=== PATIENT | male | born 1975 | race African-American/Black ===

== ENCOUNTER → 2019-05-21 | Day surgery (SDC) | payer OTHER ==
--- NOTE | 2019-05-21 16:06 | RADIOLOGY REPORT (SQ) ---
EXAM DESCRIPTION: ARTHRO SHOULDER INJECTION; FLUORO/NEEDLE PLACEMENT COMPLETED DATE/TIME: 05/21/2019 3:25 pm REASON FOR STUDY: S43.491S OTHER SPRAIN OF RIGHT SHOULDER JOINT, SEQUELA S43.491S OTHER SPRAIN OF R IGHT SHOULDER JOINT, SEQUELA COMPARISON: None. FLUOROSCOPY TIME: 12 seconds. 1 image saved to PACS. LIMITATIONS: None. PROCEDURE: Procedure, risks, benefits and alternatives explained to patient who then gave written co nsent. The left shoulder was marked and a time out was called for correct procedure verification. Po sterior entry site marked using fluoroscopic guidance. Shoulder prepped and draped using sterile jillian hnique. Local anesthesia achieved using 1% lidocaine injection. Hypodermic needle introduced into t he joint space under direct fluoroscopic visualization. Non-ionic contrast instilled to confirm intra -articular position. Dilute gadolinium solution then injected. Needle removed and entry site covered with sterile bandage. No immediate complications noted. TECHNIQUE: Digital images acquired during fluoroscopy and stored on PACS. Patient immediately take n to the MR suite for additional imaging. INJECTION LOCATION: Posterior left shoulder. CONTRAST TYPE AND AMOUNT: 10 mL Dotarem/Saline mixture. IMPRESSION: SUCCESSFUL NEEDLE PLACEMENT AND INJECTION FOR LEFT SHOULDER MR ARTHROGRAM USING POSTERIO R APPROACH. COMMENT: Quality ID [id number]: Final reports for procedures using fluoroscopy that document radiation exp osure indices, or exposure time and number of fluorographic images (if radiation exposure indices are not available) TECHNICAL DOCUMENTATION: JOB ID: [id number] [employer]- All Rights Reserved Reading location - IP/workstation name: [email or web address]
--- NOTE | 2019-05-22 11:16 | RADIOLOGY REPORT (SQ) ---
EXAM DESCRIPTION: MRI RT UPPER JOINT WITH COMPLETED DATE/TIME: 05/21/2019 3:54 pm REASON FOR STUDY: S43.491S OTHER SPRAIN OF RIGHT SHOULDER JOINT, SEQUELA S43.491S OTHER SPRAIN OF R IGHT SHOULDER JOINT, SEQUELA COMPARISON: None. TECHNIQUE: Right shoulder images acquired and stored on PACS. Oblique coronal, oblique sagittal, and axial imaging to include fat sensitive sequences as T1, water sensitive sequences as FST2/STIR, and contrast sensitive sequences as FST1. LIMITATIONS: None. FINDINGS: JOINT DISTENTION: Adequate. No loose bodies. BONE MARROW AND CORTEX: Normal. AC JOINT: Intact without significant overgrowth. Mild degenerative hypertrophy. Subacromial space p reserved. GLENOHUMERAL JOINT: No subluxation or dislocation. No focal chondral lesions. ROTATOR CUFF: Partial-thickness tear along the distal supraspinatus. This looks high-grade with prob ably 50% or more cuff thickness involvement. Partial tear along the articular surface of the infrasp inatus. No full-thickness gap in the cuff. No cuff muscle atrophy. LABRUM AND BICEPS LABRAL COMPLEX: Superior labral tear looks relatively extensive but without propaga tion into the biceps tendon. No significant paralabral cyst. INFERIOR LABRAL COMPLEX: Generally intact. ADJACENT SOFT TISSUES: No regional mass or axillary adenopathy. OTHER: No other significant finding. IMPRESSION: 1. Cuff tears. Includes relatively high-grade partial thickness articular surface and interstitial s upraspinatus tear. No full-thickness breech identified. 2. Superior labral tear. Biceps tendon looks maintained. TECHNICAL DOCUMENTATION: JOB ID: [id number] [employer]- All Rights Reserved Reading location - IP/workstation name: [email or web address]
== END ==
LOC: RAD 14:38
PROVIDERS: ATTEND Family Medicine
DX: S43.491S Other sprain of right shoulder joint, sequela (principal); X58.XXXS Exposure to other specified factors, sequela
CPT/HCPCS: 73222; 77002; 23350; A9576

== ENCOUNTER 2020-06-23 10:36 | Emergency (ER) | payer OTHER ==
--- NOTE | 2020-06-23 11:43 | ER Document Report ---
ED Medical Screen (RME) - General Chief Complaint: Rectal Pain Stated Complaint: RECTAL PAIN Time Seen by Provider: 06/23/20 11:42 Primary Care Provider: PAULO CARRERA DO [Primary Care Provider] - Follow up as needed Mode of Arrival: Ambulatory Information source: Patient Notes: 44-year-old male presented to ED for complaint of hemorrhoids that are bleeding for the last 4 days. He states he had the pain for about a week. He is alert oriented respirations regular nonlabored speaking in full sentences. He states he has never had hemorrhoids before but these are very painful. He does not smoke does drink 2 times a week and does not use any illicit drugs. He states he does have a history of high blood pressure. I have greeted and performed a rapid initial assessment of this patient. A comprehensive ED assessment and evaluation of the patient, analysis of test results and completion of medical decision making process will be conducted by an additional ED providers. TRAVEL OUTSIDE OF THE [place] IN LAST 30 DAYS: No - Related Data Allergies/Adverse Reactions: No Known Allergies Allergy (Verified 06/23/20 11:42) Physical Exam - Vital signs Vitals: Temp Pulse Resp BP Pulse Ox 98.0 F 54 L 16 149/80 H 100 06/23/20 10:41 06/23/20 10:41 06/23/20 10:41 06/23/20 10:41 06/23/20 10:41 Course - Vital Signs Vital signs: Temp Pulse Resp BP Pulse Ox 98.0 F 54 L 16 149/80 H 100 06/23/20 10:41 06/23/20 10:41 06/23/20 10:41 06/23/20 10:41 06/23/20 10:41 Doctor's Discharge - Discharge Referrals: PAULO CARRERA DO [Primary Care Provider] - Follow up as needed
[2020-06-23 12:11] LABS: ABSOLUTE EOSINOPHILS # (AUTO) 0.1 10^3/uL (0.0-0.6); ABSOLUTE LYMPHOCYTES (AUTO) 1.6 10^3/uL (0.5-4.7); ABSOLUTE MONOCYTES (AUTO) 0.7 10^3/uL (0.1-1.4); ABSOLUTE NEUT (AUTO) 3.5 10^3/uL (1.7-8.2); BASOPHILS % (AUTO) 0.2 % (0-2); HEMATOCRIT 39.1 % (37.9-51.0); LYMPHOCYTES % (AUTO) 26.4 % (13-45); MEAN CORPUSCULAR HEMOGLOBIN 28.3 pg (27.0-33.4); MEAN CORPUSCULAR HGB CONC 33.3 g/dL (32.0-36.0); MEAN CORPUSCULAR VOLUME 85 fl (80-97); MONOCYTES % (AUTO) 11.7 % (3-13); PLATELET COUNT 324 10^3/uL (150-450); RED CELL DISTRIBUTION WIDTH 13.4 % (11.5-14.0); SEGMENTED NEUTROPHILS % (AUTO) 59.7 % (42-78); TOTAL CELLS COUNTED % (AUTO) 100 %; WHITE BLOOD COUNT 5.9 10^3/uL (4.0-10.5)
[2020-06-23 12:18] LABS: INTERNATIONAL RATION (INR) 0.98; PROTHROMBIN TIME 13.2 SEC (11.4-15.4)
[2020-06-23 12:19] LABS: PARTIAL THROMBOPLASTIN TIME 30.2 SEC (23.5-35.8)
[2020-06-23 12:36] LABS: ALBUMIN 4.1 g/dL (3.5-5.0); ALKALINE PHOSPHATASE 94 U/L (38-126); ANION GAP 7 (5-19); ASPARTATE AMINO TRANSFERASE 20 U/L (17-59); BILIRUBIN,TOTAL 0.6 mg/dL (0.2-1.3); BLOOD UREA NITROGEN 16 mg/dL (7-20); CALCIUM 9.3 mg/dL (8.4-10.2); CARBON DIOXIDE 27 mmol/L (22-30); CHLORIDE 106 mmol/L (98-107); GLUCOSE 95 mg/dL (75-110); TOTAL PROTEIN 7.6 g/dL (6.3-8.2)
--- NOTE | 2020-06-23 18:12 | ER Document Report ---
ED General - General Chief Complaint: Hemorrhoids Stated Complaint: RECTAL PAIN Time Seen by Provider: 06/23/20 11:42 Primary Care Provider: PAULO CARRERA DO [Primary Care Provider] - Follow up as needed Mode of Arrival: Ambulatory Notes: Presents to the ER for evaluation of rectal pain with known hemorrhoids. The patient states he was diagnosed with hemorrhoids several days prior. He states he has been taking ibuprofen and hydrocortisone ointment without much relief. The patient states he does have painful bowel movements but he is able to have a bowel movement. He states he has been taking stool softeners to assist. Fever. He denies nausea or vomiting. He denies abdominal pain. He denies low back pain. Nursing notes reviewed and past medical, social, and family histories reviewed and validated. TRAVEL OUTSIDE OF THE [place] IN LAST 30 DAYS: No - Related Data Allergies/Adverse Reactions: No Known Allergies Allergy (Verified 06/23/20 11:42) Home Medications: bp Past Medical History - General Information source: Patient - Social History Smoking Status: Never Smoker Chew tobacco use (# tins/day): No Frequency of alcohol use: Social Drug Abuse: None Lives with: Alone Family History: None Patient has suicidal ideation: No Patient has homicidal ideation: No - Past Medical History Cardiac Medical History: Reports: None Pulmonary Medical History: Reports: None EENT Medical History: Reports: None Neurological Medical History: Reports: None Endocrine Medical History: Reports: None Renal/ Medical History: Reports: None Malignancy Medical History: Reports None GI Medical History: Reports: None Musculoskeletal Medical History: Reports None Skin Medical History: Reports None Psychiatric Medical History: Reports: None Traumatic Medical History: Reports: None Infectious Medical History: Reports: None Past Surgical History: Reports: None - Immunizations Immunizations up to date: Yes Hx Diphtheria, Pertussis, Tetanus Vaccination: Yes Review of Systems - Review of Systems Notes: Constitutional: Negative for fever. HENT: Negative for sore throat. Eyes: Negative for visual changes. Cardiovascular: Negative for chest pain. Respiratory: Negative for shortness of breath. Gastrointestinal: Negative for abdominal pain, vomiting or diarrhea. Positive rectal pain. Genitourinary: Negative for dysuria. Musculoskeletal: Negative for back pain. Skin: Negative for rash. Neurological: Negative for headaches, weakness or numbness. 10 point ROS negative except as marked above and in HPI. Physical Exam - Vital signs Vitals: Temp Pulse Resp BP Pulse Ox 98.0 F 54 L 16 149/80 H 100 06/23/20 10:41 06/23/20 10:41 06/23/20 10:41 06/23/20 10:41 06/23/20 10:41 - Notes Notes: CONSTITUTIONAL: Well appearing in no acute distress SKIN: Warm, dry, and intact without rash EYES: Extraocular movements are grossly intact, clear conjunctiva HENT: Normocephalic, atraumatic, moist mucus membranes NECK: No obvious swelling, normal range of motion PULMONARY: Normal chest rise and fall, no respiratory distress or stridor CARDIOVASCULAR: Regular rate, distal extremities are warm and well perfused NEUROLOGIC: Normal speech, moves all extremities GI: There are several large external hemorrhoids on exam. No bleeding noted. MUSCULOSKELETAL: No gross deformities, atraumatic PSYCHIATRIC: Normal mood and affect Course - Re-evaluation Re-evalutation: 06/23/20 19:40 Rechecked patient who has responded well to treatment in the ER. Discussed with patient: results, diagnosis, treatment plan, and need for follow-up. Return to the emergency department warnings were given. All questions and concerns were addressed. The plan is agreed with and understood. Patient is stable and ready for discharge. - Vital Signs Vital signs: Temp Pulse Resp BP Pulse Ox 97.4 F 64 16 144/72 H 99 06/23/20 18:47 06/23/20 18:47 06/23/20 18:47 06/23/20 18:47 06/23/20 18:47 - Laboratory Result Diagrams: 06/23/20 11:55 06/23/20 11:55 Laboratory results interpreted by me: 06/23/20 11:55 Hgb 13.0 L Discharge - Discharge Clinical Impression: Acute hemorrhoid Condition: Stable Disposition: HOME, SELF-CARE Instructions: Hemorrhoids ([facility]) Additional Instructions: Follow-up with [facility] as discussed. Call Friday morning for an appointment time. Address: [place] [address] Prescriptions: Tramadol HCl [Ultram] 50 mg PO Q6HP PRN 3 Days #12 tablet PRN Reason: For Pain Referrals: PAULO CARRERA DO [Primary Care Provider] - Follow up as needed
[2020-06-23 18:48] VITALS: BP 144/72
== END 2020-06-23 18:49 | disposition home or self-care (01) ==
LOC: ER 10:36
DX: K64.4 Residual hemorrhoidal skin tags (principal); Z79.899 Other long term (current) drug therapy
CPT/HCPCS: 36415; 80053; 85025; 85610; 85730; 99283